=== PATIENT | female | born 1955 | race Caucasian/White ===

== ENCOUNTER 2019-04-21 06:51 | Day surgery (SDC) | payer BC ==
[~2019-04-21] VITALS: Ht 162.6 cm; Wt 93.3 kg
[~2019-04-21 06:51] MED LIST: ASPI81TA26 PO; BUSP15TA47 PO; CO Q1CAP2 PO; D3 U5000 PO; GLUC1CAP10 PO; LISI-538 PO; LORA0.5T11 PO; SIMV20TA2 PO; [UNRECOGNIZED DRUG - OTHER] PO
[2019-04-21] MEDS ORDERED: NS 1,000 ML IV ONE (07:00)
[2019-04-21] MEDS ORDERED: PROPOFOL 200 MG/20 ML VIAL As Ordered ONE ×2 (07:41→07:54)
[2019-04-21] MEDS ORDERED: LIDOCAINE 2% INJ 100 MG/5 ML SDV (FOR ANES.) As Ordered ONE (07:41)
--- NOTE | 2019-04-21 08:02 | ROOR ---
Patient Name: Taina Long Procedure Date: 04/21/2019 7:32 AM Date of : 1955 Age: 63 Room: [facility] Gender: Female Note Status: Finalized Procedure: Total Colonoscopy to Cecum + Cold + Biopsy Snare Polypectomy Indications: Screening for colorectal malignant neoplasm Providers: Burke Whitlock MD Referring MD: NATY KHAN NP Requesting Provider: Medicines: Monitored Anesthesia Care Complications: No immediate complications. Procedure: Pre-Anesthesia Assessment: - The heart rate, respiratory rate, oxygen saturations, blood pressure, adequacy of pulmonary ventilation, and response to care were monitored throughout the procedure. The Colonoscope was introduced through the anus and advanced to the cecum, identified by appendiceal orifice and ileocecal valve. The colonoscopy was performed without difficulty. The patient tolerated the procedure well. The quality of the bowel preparation was excellent. Findings: The perianal and digital rectal examinations were normal. Non-bleeding internal hemorrhoids were found during retroflexion. The hemorrhoids were small and Grade I (internal hemorrhoids that do not prolapse). Scattered small-mouthed diverticula were found in the recto-sigmoid colon, sigmoid colon and descending colon. A small polyp was found in the rectum. The polyp was sessile. The polyp was removed with a jumbo cold forceps. Resection and retrieval were complete. A small polyp was found at 25 cm proximal to the anus. The polyp was semi-pedunculated. The polyp was removed with a cold snare. Resection and retrieval were complete. A small polyp was found in the transverse colon. The polyp was sessile. The polyp was removed with a jumbo cold forceps. Resection and retrieval were complete. A small polyp was found in the ascending colon. The polyp was sessile. The polyp was removed with a jumbo cold forceps. Resection and retrieval were complete. The exam was otherwise without abnormality on direct and retroflexion views. Impression: - Non-bleeding internal hemorrhoids. - Diverticulosis in the recto-sigmoid colon, in the sigmoid colon and in the descending colon. - One small polyp in the rectum, removed with a jumbo cold forceps. Resected and retrieved. - One small polyp at 25 cm proximal to the anus, removed with a cold snare. Resected and retrieved. - One small polyp in the transverse colon, removed with a jumbo cold forceps. Resected and retrieved. - One small polyp in the ascending colon, removed with a jumbo cold forceps. Resected and retrieved. - The examination was otherwise normal on direct and retroflexion views. - The exam was otherwise normal to the cecum. Recommendation: - Patient has a contact number available for emergencies. The signs and symptoms of potential delayed complications were discussed with the patient. Return to normal activities tomorrow. Written discharge instructions were provided to the patient. - High fiber diet. - Discharge patient to home. - Continue present medications. - Await pathology results. - Repeat colonoscopy in 5 years for surveillance based on pathology results. - Return to referring physician. - The findings and recommendations were discussed with the patient's family. Burke Whitlock MD Burke Whitlock MD 04/21/2019 8:02:15 AM Electronically signed by Burke Whitlock MD Number of Addenda: 0 Note Initiated On: 04/21/2019 7:32 AM Estimated Blood Loss: Estimated blood loss: none.
[2019-04-21 08:20] VITALS: BP 113/56
== END 2019-04-21 08:28 | disposition home or self-care (01) ==
LOC: M OPP 06:51
PROVIDERS: ATTEND Internal Medicine Gastroenterology
DX: D12.2 Benign neoplasm of ascending colon (principal); D12.3 Benign neoplasm of transverse colon; D12.8 Benign neoplasm of rectum; K63.5 Polyp of colon; K64.0 First degree hemorrhoids; K57.30 Diverticulosis of large intestine without perforation or abscess without bleeding; Z12.11 Encounter for screening for malignant neoplasm of colon

== ENCOUNTER → 2021-02-14 | Outpatient (CLI) | payer MEDICARE ==
[~2021-02-14] MED LIST changes: -LISI-538 PO; +LISI20TA33 PO; -LORA0.5T11 PO; +LORA0.5T5 PO; -SIMV20TA2 PO; +SIMV20TA22 PO
--- NOTE | 2021-02-14 13:47 | REP ---
INDICATION: RULE OUT DVT. COMPARISON: None. TECHNIQUE: Right lower extremity duplex venous ultrasound. FINDINGS: The deep veins are anechoic and fully compressible from the groin to the popliteal fossa in the right lower extremity. Color flow imaging is homogeneous. Spectral Doppler interrogation demonstrates intact respiratory variation in flow and normal manual augmentation of flow. There is no evidence of deep vein thrombosis. There is a Roger's cyst in the right posterior popliteal fossa measuring 4.5 x 0.8 x 2.4 cm. IMPRESSION: Negative right lower extremity duplex venous ultrasound. No evidence of deep vein thrombosis. Right-sided Roger's cyst seen. <Electronically signed by Will Chaudhary > 02/14/21 [id number]
== END ==
LOC: M RAD 12:42
PROVIDERS: ATTEND Registered Nurse
DX: M79.604 Pain in right leg (principal); M71.21 Synovial cyst of popliteal space [Baker], right knee

== ENCOUNTER → 2021-02-14 | Outpatient (CLI) | payer MEDICARE ==
--- NOTE | 2021-02-14 17:17 | REP ---
INDICATION: PAIN. COMPARISON: None. TECHNIQUE: Five views of the right knee. FINDINGS: Five views of the right knee demonstrate mild superior pole patellar spurring on the lateral radiograph consistent with early osteoarthritis. Bones, joints, and soft tissues are otherwise unremarkable.. No fracture or subluxation is seen. No opaque foreign body noted. IMPRESSION: Minimal patellar spurring. Otherwise negative right knee radiographs.. <Electronically signed by Will Chaudhary > 02/14/21 [id number]
== END ==
LOC: M WUC 13:59
PROVIDERS: ATTEND Registered Nurse
DX: M25.561 Pain in right knee (principal)

== ENCOUNTER → 2022-05-02 | Outpatient (CLI) | payer MEDICARE | LOC: M WUC 15:04 | PROVIDERS: ATTEND Registered Nurse | DX: M17.11 Unilateral primary osteoarthritis, right knee (principal) ==

== ENCOUNTER → 2022-10-09 | Outpatient (REF) | payer MEDICARE ==
[2022-10-09 17:07] LABS: FERRITIN 622 NG/ML (8-252); IRON (FE) 122 UG/DL (50-170); TOTAL IRON BINDING CAPACITY 359 UG/DL (250-450)
[2022-10-09 17:45] LABS: VITAMIN B12 LEVEL 730 PG/ML
[2022-10-09 17:56] LABS: HEPATITIS B SURFACE ANTIGEN NEGATIVE (NEGATIVE)
[2022-10-09 18:24] LABS: HEPATITIS B CORE ANTIBODY IGM NEGATIVE (NEGATIVE); HEPATITIS C VIRUS ABY INDEX 0.2 INDEX (<0.8)
== END ==
LOC: M LAB REF 16:14
PROVIDERS: ATTEND Registered Nurse
DX: K76.0 Fatty (change of) liver, not elsewhere classified (principal)

== ENCOUNTER → 2022-10-22 | Outpatient (REF) | payer MEDICARE | LOC: M LAB REF 16:32 | PROVIDERS: ATTEND Internal Medicine | DX: R71.8 Other abnormality of red blood cells (principal); E83.119 Hemochromatosis, unspecified ==

== ENCOUNTER → 2023-05-13 | Outpatient (CLI) | payer MEDICARE | LOC: M WUC 13:24 | PROVIDERS: ATTEND Physician Assistant Medical | DX: M19.90 Unspecified osteoarthritis, unspecified site (principal) ==

== ENCOUNTER → 2024-11-12 | Outpatient (CLI) | payer MEDICARE | LOC: M WUC 14:29 | PROVIDERS: ATTEND Physician Assistant Medical | DX: R22.31 Localized swelling, mass and lump, right upper limb (principal) ==

== ENCOUNTER → 2025-03-09 | Outpatient (CLI) | payer MEDICARE | LOC: M WUC 14:20 | PROVIDERS: ATTEND Physician Assistant Medical | DX: R05.9 Cough, unspecified (principal) ==